=== PATIENT | female | born 1955 | race Caucasian/White ===

== ENCOUNTER → 2024-04-22 | Outpatient (CLI) | payer OTHER, MEDICAID, SELFPAY ==
--- NOTE | 2024-04-22 14:00 | XR_ITS ---
Examination: Bone densitometry Date and time of exam:April 22, 2024 1344 hours INDICATIONS: Menopause age 48 smoking history 40 years Technique: Lumbar spine and hip total bone mineralization values of an calculated. Peak reference and age match control results have been displayed. Findings: Lumbar spine total bone mineralization is1.342 gm/cm2. This is 2.7 standard deviations above peak reference. This is 4.9 standard deviations above age-matched controls. Hip total bone mineralization is 1.031 gm/cm2 This is 0.7 standard deviations above peak reference. This is 2.3 standard deviations above age-matched controls Impression: There is normal mineralization based on lumbar spine measurements. There is normal mineralization based on hip measurements Lumbar mineralization is increased 3.0% compared with May 27, 2021 Hip mineralization is increase 0.8% compared with May 27, 2021
== END | disposition home or self-care (01) ==
PROVIDERS: PCP Physician Assistant; Referring Provider Physician Assistant; Visit Provider Physician Assistant
DX: Z13.820 Encounter for screening for osteoporosis (principal)
CPT/HCPCS: 77080

== ENCOUNTER → 2024-07-04 | Outpatient (CLI) | payer OTHER, MEDICAID, SELFPAY ==
--- NOTE | 2024-07-04 13:00 | XR_ITS ---
Examination: Screening digital mammography, bilateral Computer aided detection 3-D breast Tomosynthesis, bilateral Date and time of exam: 125, 1:00 PM Comparisons: 07/06/2022 Indications: Screening Technique: Nonmagnified MLO, CC views of the breasts to been obtained, reconstructed from 3-D Tomosynthesis images. R2 computer aided detection program utilized for evaluation of suspicious masses and/or abnormal calcifications. 3-D Tomosynthesis images obtained. Technologist: Findings: There are scattered areas of fibroglandular density. No evidence of abnormal masses or suspicious calcifications. Impression: BI-RADS category 1: Negative findings (within normal) Recommend 1 year follow-up mammogram
== END | disposition home or self-care (01) ==
LOC: CDIM 12:52
PROVIDERS: PCP Physician Assistant Medical; Referring Provider Physician Assistant Medical; Visit Provider Physician Assistant Medical
DX: Z12.31 Encounter for screening mammogram for malignant neoplasm of breast (principal); R92.313 Mammographic fatty tissue density, bilateral breasts
CPT/HCPCS: 77063; 77067

== ENCOUNTER → 2025-02-17 | Outpatient (CLI) | payer OTHER, MEDICAID, SELFPAY ==
--- NOTE | 2025-02-17 15:30 | XR_ITS ---
Examination: CT lung low dose screening for lung cancer, without contrast. 2-D sagittal reconstructions. 2-D coronal reconstructions. 3-D reconstructions. Date and time of exam: February 17 25, 1449 hours INDICATIONS: Smoking history years CTDI: vol (mGy): 20.5 DLP: (mGycm): 757 Technique: Multiple 1.25 mm axial sections of the thorax have been obtained. 2-D sagittal and coronal reconstructions have been obtained. 3-D reconstructions have been obtained. Low dose protocols were performed. One or more of the following dose reduction techniques were used; automated exposure control, adjustment of the mA and/or KV according to patient size, use of iterative reconstruction technique. Findings: Thorax no thoracic aortic aneurysm dilatation Pulmonary artery segments are not enlarged Mild calcification left anterior descending coronary artery. No paratracheal tracheobronchial or bronchopulmonary adenopathy 2 mm pulmonary nodule in the right middle lobe image 187 4 mm pulmonary nodule left lower lobe image 204 No pneumonia or pulmonary edema No visualized liver or splenic lesion Absent gallbladder Fat-containing right adrenal mass, 38 mm IMPRESSION: Noncalcified pulmonary nodules as above, with the study as baseline recommend 6-month follow-up CT chest without contrast
== END | disposition home or self-care (01) ==
LOC: CCTX 14:39
PROVIDERS: Referring Provider Physician Assistant; Visit Provider Physician Assistant
DX: R91.8 Other nonspecific abnormal finding of lung field (principal)
CPT/HCPCS: 71271